=== PATIENT | male | born 1995 | race Two or more races ===

== ENCOUNTER 2023-04-18 21:09 | Emergency (ER) | payer SELFPAY ==
[~2023-04-18] VITALS: Ht 162.6 cm; Wt 67.3 kg
[2023-04-18 21:13] VITALS: BP 154/104
--- NOTE | 2023-04-18 22:46 | NUR ---
he was eventually taken out to the police car because he jumped up and tried to bolt out so the officer did catch him. Another officer here that assisted that officer. Pt fighting.
== END 2023-04-18 22:52 ==
LOC: ER 21:09
DX: F10.129 Alcohol abuse with intoxication, unspecified (principal); Z04.1 Encounter for examination and observation following transport accident; Y90.9 Presence of alcohol in blood, level not specified
CPT/HCPCS: 99283